=== PATIENT | male | born 1995 | race Caucasian/White ===

== ENCOUNTER 2022-12-27 06:10 | Day surgery (SDC) | payer OTHER ==
[~2022-12-27] VITALS: Ht 185.4 cm; Wt 78.9 kg
[2022-12-27] MEDS ORDERED: PROPOFOL 200 MG/20 ML VIAL IV ONE (07:00)
[2022-12-27] MEDS ORDERED: NEOMYCIN/POLYMYXIN/BACITRACIN OIN 15 GM TUBE TP ONE (07:00)
[2022-12-27] MEDS ORDERED: ePHEDrine 50 MG/ML VIAL ONE (07:00)
[2022-12-27] MEDS ORDERED: ceFAZolin 1,000 MG VIAL ONE (07:00)
[2022-12-27] MEDS ORDERED: SEVOFLURANE 250 ML BTL INH ONE (07:00)
[2022-12-27] MEDS ORDERED: ONDANSETRON 4 MG/2 ML VIAL ONE ×2 (07:00→08:26)
[2022-12-27] MEDS ORDERED: KETOROLAC 30 MG/ML VIAL ONE ×2 (07:00→08:26)
[2022-12-27] MEDS ORDERED: fentaNYL citrate 0.05 MG/ML - 50mL vial IV ONE (07:00)
[2022-12-27] MEDS ORDERED: ROCURONIUM 50 MG/5 ML VIAL IV ONE ×3 (07:00→09:08)
[2022-12-27] MEDS ORDERED: GLYCOPYRROLATE 0.2 MG/ML VIAL ONE ×6 (07:00→09:54)
[2022-12-27] MEDS ORDERED: SUCCINYLCHOLINE CHLORIDE 200 MG/10 ML VIAL IVP ONE ×2 (07:00→08:25)
[2022-12-27] MEDS ORDERED: LIDOCAINE/EPI MPF 1%1:200000 30 ML VIAL INJ ONE (07:49)
[2022-12-27] MEDS ORDERED: BUPIVACAINE-MPF 0.25% 30 ML VIAL INJ ONE (07:49)
[2022-12-27] MEDS ORDERED: fentaNYL citrate 0.05 MG/ML VIAL ONE (07:57)
[2022-12-27] MEDS ORDERED: METOCLOPRAMIDE 10 MG/2 ML INJ VIAL IVP PRN (09:49)
[2022-12-27] MEDS ORDERED: hydrALAZINE 20 MG/ML VIAL IVP PRN (09:49)
[2022-12-27] MEDS ORDERED: LABETALOL 20 MG/4 ML VIAL IVP PRN (09:49)
[2022-12-27] MEDS ORDERED: LACTATED RINGERS 1,000 ML IV SCH (09:50)
[2022-12-27] MEDS ORDERED: HYDROmorphone 1 MG/ML AMP IVP PRN ×2 (09:50→09:55)
[2022-12-27] MEDS ORDERED: HYDR-5191 PO ×2 (09:54→09:57)
[2022-12-27] MEDS ORDERED: NEOSTIGMINE 1:1000 10 MG/10 ML VIAL ONE (09:54)
[2022-12-27] MEDS ORDERED: MORPHINE SULFATE 4 MG/ML SYR IV PRN (09:55)
[2022-12-27] MEDS ORDERED: ONDANSETRON 4 MG/2 ML VIAL IV PRN (09:55)
[2022-12-27] MEDS ORDERED: oxyCODONE/APAP 5/325 MG 1 TAB TAB PO PRN (09:55)
[2022-12-27] MEDS ORDERED: MORPHINE SULFATE 2 MG/ML SYR IVP PRN (09:55)
== END 2022-12-27 11:30 | disposition home or self-care (01) ==
LOC: MDS 06:10 → MMU 06:18 → MDS 11:30
PROVIDERS: ATTEND Surgery
DX: L05.01 Pilonidal cyst with abscess (principal)
CPT/HCPCS: 11771; 71045; 88304; J0330; J0690; J1885; J2001; J2405; J2704; J2710; J3010; J3490; J7060; J7120; Q0092